=== PATIENT | female | born 1940 | race Caucasian/White ===

== ENCOUNTER 2023-07-25 00:12 | Emergency (ER) | payer MEDICARE, OTHER, SELFPAY ==
[2023-07-25 00:14] VITALS: BP 140/65; BMI 23.1
[2023-07-25 00:23] VITALS: BP 140/65
[2023-07-25 00:54] LABS: ALT (SGPT) 18 U/L (0-35); AST (SGOT) 35 U/L (14-36); Albumin 4.4 g/dl (3.5-5.0); Alkaline Phosphatase 87 U/L (38-126); Blood Urea Nitrogen 17 mg/dl (7-17); Calcium 9.4 mg/dl (8.4-10.2); Carbon Dioxide 24 mmol/L (22-30); Chloride 108 mmol/L (98-107); Estimated Creatinine Clearance 47 ml/min; Glucose 112 mg/dl (70-99); Potassium 4.3 mmol/L (3.5-5.1); Sodium 141 mmol/L (135-145); Total Bilirubin 0.5 mg/dl (0.2-1.3); Total Protein 7.1 g/dl (6.3-8.2); eGFR > 60.00
[2023-07-25 01:00] VITALS: BP 134/65
[2023-07-25 01:28] LABS: % Basophils 0.6 % (0-2); % Eosinophils 0.8 % (0-6); % Lymphocytes 21.2 % (20.5-51.1); % Monocytes 7.5 % (1.7-9.3); % Neutrophils 67.9 % (42.2-75.2); Absolute Eosinophils 0.1 10^3/uL (0-0.7); Absolute Immature Granulocytes 0.1 10^3/uL (0-0.05); Absolute Lymphocytes 1.4 10^3/uL (1.2-3.4); Absolute Monocytes 0.5 10^3/uL (0.1-0.6); Absolute Neutrophils 4.4 10^3/uL (1.4-6.5); Hematocrit 41.8 % (37.0-47.0); Hemoglobin 13.8 g/dL (12.0-16.0); Mean Platelet Volume 8.6 fL (7.4-10.4); Nucleated Red Blood Cells % 0 %; Platelet Count 193 10^3/uL (130-400); Red Blood Cell Count 4.18 10^6/uL (4.20-5.40); Red Cell Dist. Width 14.6 % (11.5-14.5); White Blood Cell Count 6.4 10^3/uL (4.8-10.8)
--- NOTE | 2023-07-25 02:49 | ED.GENMED ---
History of Present Illness
General
Chief Complaint: Fall
Source: patient and ambulance crew
Exam Limitations: none
Time Seen by Provider: 07/25/23 02:49
Nursing documentation reviewed up to this point in time: agreed with
Travel History
Have you had any contact with someone who has COVID-19?: No
Do you have any symptoms of coronavirus? Fever > 100 degrees, chills, cough, shortness of breath, sore throat, loss of taste or smell, muscle aches, or headache?: No
History of Present Illness
History of Present Illness:
83 yo female presents emergency department complaining of a fall on her way to the bathroom. She was drinking vodka tonight. She complains of loss of consciousness. She does not take any blood thinners. She did hit her head.
Past History
Past History
ED Past Medical History: Fibromyalgia, Hypercholesterolemia, Psychiatric (depression) and Other (Ulcerative colitis)
Patient has exhibited threatening behavior?: No
Social History
Tobacco: Former smoker (has used e-cigarettes for past 'few' years.)
Alcohol: Occasional
Drug: None
Personal:
Living: with family
Review of Systems
Review of Systems
Allergies reviewed?: Yes
All Other Systems: Not applicable
Constitutional: Reports no symptoms
EENT: Reports no symptoms
Respiratory: Reports no symptoms
Cardiac: Reports no symptoms
ABD/GI: Reports no symptoms
: Reports no symptoms
Musculoskeletal: Reports no symptoms
Skin: Reports other (Forehead laceration, left elbow skin tear)
Neurological: Reports no symptoms
Endocrine: Reports no symptoms
Hematologic/Lymphatic: Reports no symptoms
Psychiatric: Reports no symptoms
Phy Exam
Physical Exam
Physical Exam:
Physical Exam
General: no apparent distress, not acutely ill
Neck: supple. no meningeal signs. normal posterior pharynx
Heart: s1/s2 regular rate and rhythm, no murmur. equal radial
pulses.
HEENT: Pupils equal round reactive to light, EOMI
Lungs: no acute respiratory distress. clear bilaterally
Abdomen: normal bowel sounds. not tender. no CVAT
Neuro: alert and oriented. no focal neurological deficits cranial nerves II through XII intact
Skin: no rash, skin tear left elbow, 2 cm left forehead laceration
Psychiatric: well kept. interactive and cooperative
Extremities: no edema. no calf tenderness. negative homans. good distal pulses
Course
Orders/Labs/Results
Orders:
Orders
07/25/23 00:18
Electrocardiogram (*1) Urgent
Reason for Study: Syncope
EKG- Treatment ONCE
07/25/23 00:30
Complete Blood Count/With Diff Urgent
Comprehensive Metabolic Panel Urgent
07/25/23 01:28
CT Head W/o Iv Contrast Urgent
Comment:
Reason For Exam: fall
Elbow, 3 view, Left [CR Elbow - Left Min 3 Views ] Urgent
Comment:
Reason For Exam: fall
07/25/23 03:30
Acetaminophen [Tylenol] 650 mg .ROUTE .STK-MED ONE
Abnormal Lab Results
07/25/23
00:30
RBC 4.18 L 10^6/uL
(4.20-5.40)
MCV 100.0 H fL
(81.0-99.0)
MCH 33.0 H pg
(27.0-31.0)
RDW 14.6 H %
(11.5-14.5)
Abs Immat Gran (auto) 0.1 H 10^3/uL
(0-0.05)
Immature Gran % 2.0 H %
(0-0.5)
Chloride 108 H mmol/L
(98-107)
Glucose 112 H mg/dl
(70-99)
07/25/23 00:30
07/25/23 00:30
Vital Signs
Initial and Last Documented VS:
Initial Vital Signs
Temp Pulse Resp BP Pulse Ox
97.8 F 71 18 140/65 99
07/25/23 00:14 07/25/23 00:14 07/25/23 00:14 07/25/23 00:14 07/25/23 00:14
Last Documented Vital Signs
Temp Pulse Resp BP Pulse Ox
97.8 F 71 18 140/65 99
07/25/23 00:14 07/25/23 00:14 07/25/23 00:14 07/25/23 00:14 07/25/23 00:14
MDM/Problems Addressed
Differential Diagnosis Includes:
Intracranial hemorrhage, alcohol intoxication
MDM/Problems Addressed:
83-year-old female with left forehead laceration, fall, skin tear left elbow.
Chronic conditions affecting care: COPD
Acute Exacerbation and/or Progression of Chronic Illness: COPD
*Radiology
Radiology exam reviewed: preliminary read by ED provider (Left elbow x-ray no fracture no fracture) and radiology read reviewed (CT head no acute findings)
*Pulse Oximetry
Patient hypoxic: no
*EKG
Interpreted by ED Provider?: Yes
EKG Intrepretation Date: 07/25/23
EKG Intrepretation Time: 00:22
Interpretation: normal
Comparison EKG: no changes
Heart Rate: 71
Rate: normal
Rhythm: sinus
[place]: normal axis
Interval: normal interval
QRS Pattern: normal QRS
Ischemia: no ischemia
*Industrial Design Engineer Interpretation
Rate: normal
Interpretation: normal
Heart Rate: 70
Rhythm: sinus
*Critical Care Note
Total Time (30-74mins, 75-104mins- exclusive of procedures): Not Applicable
Patient Management
Social determinants of health affecting care: Substance abuse (Alcohol, electronic cigarette)
ED Attending Note
-
Portions of this chart may have been created with voice recognition software.� Occasional wrong word or��sound alike� substitutions may have occurred due to the inherent limitations of voice recognition software.
Discharge Plan
Departure
Patient Disposition: Home (Routine Discharge)
Date of Disposition: 07/25/23
Time of Disposition: 03:51
Patient with high blood pressure during this ER visit?: Yes
Condition: Good
Discharge Problem:
Fall, Skin tear, Forehead laceration
Instructions: Laceration Repair With Stitches (DC), Preventing falls in adults, Skin Abrasions (DC), BLOOD PRESSURE
Prescriptions:
No Action
ascorbic acid (vitamin C) [Vitamin C] 500 MG tablet
500 mg PO DAILY
simvastatin 20 MG tablet
20 mg PO QPM
lorazepam 0.5 MG tablet
0.5 - 1 mg PO HS
Patient Comments:
09/02/2021: last filled 05/05/21, 180 tabs for 90 days from [facility]
hydrocodone-acetaminophen 1 TABLET tablet
1 tab PO [id number] PRN (Reason: moderate to severe pain)
Patient Comments:
09/02/2021: last filled 07/15/21, 60 tabs for 30 days
methylprednisolone 4 MG tablet
4 mg PO DAILY
folic acid 1 MG tablet
1 mg PO DAILY
cholecalciferol (vitamin D3) 1,000 UNITS tablet
1,000 units PO DAILY
Prolia 60 MG/ML syringe
60 mg SC .[id number]
calcium carbonate 500 MG tablet
500 mg PO DAILY Qty: 0
methotrexate sodium (PF) 50 MG/2 ML solution
1 ml SC TU
methenamine hippurate [Hiprex] 1 gram tablet
1 g PO BID 30 Days Qty: 60 0RF
Referrals:
Dawson Jordan CRNP [Family Provider] - Call in 1-3 days for appt
Interventions
Interventions:
*Risk Screen - Suicide Last Done: 07/25/23 00:14
*General Assessment Last Done: 07/25/23 00:14
*Neglect/Abuse Screening Last Done: 07/25/23 00:14
*ED COVID-19 Vaccine History Last Done: 07/25/23 00:14
ED-Musculoskeletal Assessment Last Done: 07/25/23 00:28
ED- Neurological Assessment Last Done: 07/25/23 00:28
ED-Skin Assessment Last Done: 07/25/23 00:28
Discharge Date and Time
Print Language: GUINEAN
[2023-07-25] MEDS: TYLENOL 650 MG PO (03:42)
--- NOTE | 2023-07-25 06:56 | EDRN ---
call to pt's daughter to provide ride home- no answer QUINTON left
[2023-07-25 07:32] VITALS: BP 162/77
== END 2023-07-25 09:48 | disposition home or self-care (01) ==
LOC: EMR 00:12
PROVIDERS: EMERGENCY PHYSICIAN Emergency Medicine; FAMILY PHYSICIAN Nurse Practitioner Family
DX: S51.012A Laceration without foreign body of left elbow, initial encounter (principal); S01.81XA Laceration without foreign body of other part of head, initial encounter; W19.XXXA Unspecified fall, initial encounter; M79.7 Fibromyalgia; E78.00 Pure hypercholesterolemia, unspecified; K51.90 Ulcerative colitis, unspecified, without complications; F32.A Depression, unspecified; J44.9 Chronic obstructive pulmonary disease, unspecified; Z87.891 Personal history of nicotine dependence
CPT/HCPCS: 99284; 70450; 73080; 80053; 85025; 93005

== ENCOUNTER → 2023-09-28 11:26 | Outpatient (REF) | payer MEDICARE, OTHER, SELFPAY ==
[2023-09-28 16:19] LABS: ALT (SGPT) 16 U/L (0-35); AST (SGOT) 29 U/L (14-36); Albumin 4.3 g/dl (3.5-5.0); Alkaline Phosphatase 95 U/L (38-126); Blood Urea Nitrogen 15 mg/dl (7-17); Calcium 9.1 mg/dl (8.4-10.2); Carbon Dioxide 28 mmol/L (22-30); Chloride 103 mmol/L (98-107); Glucose 102 mg/dl (70-99); HDL Cholesterol 70 mg/dl; LDL Cholesterol, Calculated 107 mg/dl; Potassium 3.8 mmol/L (3.5-5.1); Sodium 137 mmol/L (135-145); Total Bilirubin 0.7 mg/dl (0.2-1.3); Total Cholesterol 231 mg/dl (50-199); Total Protein 6.8 g/dl (6.3-8.2); Triglyceride 270 mg/dl (10-149); Very Low Density Lipoprotein 54 mg/dl (0-30); eGFR > 60.00
[2023-09-28 16:24] LABS: % Basophils 0.3 % (0-2); % Eosinophils 1.2 % (0-6); % Immature Granulocytes 0.5 % (0-0.5); % Lymphocytes 14.6 % (20.5-51.1); % Monocytes 7.2 % (1.7-9.3); % Neutrophils 76.2 % (42.2-75.2); Absolute Eosinophils 0.1 10^3/uL (0-0.7); Absolute Lymphocytes 1.1 10^3/uL (1.2-3.4); Absolute Monocytes 0.5 10^3/uL (0.1-0.6); Absolute Neutrophils 5.6 10^3/uL (1.4-6.5); Hematocrit 41.9 % (37.0-47.0); Hemoglobin 13.9 g/dL (12.0-16.0); Mean Corp Hgb Conc. 33.2 g/dL (33.0-37.0); Mean Corpuscular Volume 99.5 fL (81.0-99.0); Mean Platelet Volume 8.7 fL (7.4-10.4); Nucleated Red Blood Cells % 0 %; Platelet Count 218 10^3/uL (130-400); Red Blood Cell Count 4.21 10^6/uL (4.20-5.40); Red Cell Dist. Width 13.4 % (11.5-14.5); White Blood Cell Count 7.3 10^3/uL (4.8-10.8)
[2023-09-28 16:48] LABS: TSH Reflex To Free T4 0.44 uIU/ml (0.47-4.68)
[2023-09-28 17:16] LABS: Free T4 1.17 ng/dl (0.78-2.19)
== END ==
LOC: HWLAB 11:26
PROVIDERS: ATTENDING PHYSICIAN Nurse Practitioner Family
DX: Z79.899 Other long term (current) drug therapy (principal); E78.5 Hyperlipidemia, unspecified; K51.90 Ulcerative colitis, unspecified, without complications; L40.50 Arthropathic psoriasis, unspecified; M81.0 Age-related osteoporosis without current pathological fracture; F32.5 Major depressive disorder, single episode, in full remission
CPT/HCPCS: 36415; 80053; 80061; 84439; 84443; 85025

== ENCOUNTER → 2023-11-23 12:55 | Outpatient (REF) | payer MEDICARE, OTHER, SELFPAY ==
[2023-11-23 16:03] LABS: Free T3 3.27 pg/ml (2.77-5.27)
[2023-11-23 16:17] LABS: TSH 0.38 uIU/ml (0.47-4.68)
[2023-11-25 16:03] LABS: Thyroid Peroxidase Ab (TPO) <0.3 IU/mL (0.0-9.0)
[2023-11-26 04:21] LABS: TSH Receptor Antibody <1.10 IU/L (<=1.75)
== END ==
LOC: HWLAB 12:55
PROVIDERS: ATTENDING PHYSICIAN Nurse Practitioner Family
DX: E05.90 Thyrotoxicosis, unspecified without thyrotoxic crisis or storm (principal)
CPT/HCPCS: 36415; 83520; 84439; 84443; 84481; 86376

== ENCOUNTER → 2024-03-17 12:46 | Outpatient (REF) | payer MEDICARE, OTHER, SELFPAY ==
[2024-03-17 15:43] LABS: % Basophils 0.3 % (0-2); % Eosinophils 0.3 % (0-6); % Lymphocytes 17.2 % (20.5-51.1); % Neutrophils 75.2 % (42.2-75.2); Absolute Immature Granulocytes 0.2 10^3/uL (0-0.05); Absolute Lymphocytes 1.3 10^3/uL (1.2-3.4); Absolute Monocytes 0.4 10^3/uL (0.1-0.6); Absolute Neutrophils 5.7 10^3/uL (1.4-6.5); Hematocrit 41.1 % (37.0-47.0); Hemoglobin 13.2 g/dL (12.0-16.0); Mean Corp Hgb Conc. 32.1 g/dL (33.0-37.0); Mean Corpuscular Hgb 32.8 pg (27.0-31.0); Mean Platelet Volume 8.4 fL (7.4-10.4); Nucleated Red Blood Cells % 0 %; Platelet Count 255 10^3/uL (130-400); Red Blood Cell Count 4.03 10^6/uL (4.20-5.40); Red Cell Dist. Width 14.3 % (11.5-14.5); White Blood Cell Count 7.6 10^3/uL (4.8-10.8)
[2024-03-17 15:51] LABS: ALT (SGPT) 19 U/L (0-35); AST (SGOT) 28 U/L (14-36); Albumin 4.1 g/dl (3.5-5.0); Alkaline Phosphatase 96 U/L (38-126); Blood Urea Nitrogen 18 mg/dl (7-17); Calcium 9.1 mg/dl (8.4-10.2); Carbon Dioxide 29 mmol/L (22-30); Chloride 103 mmol/L (98-107); Glucose 102 mg/dl (70-99); Potassium 3.8 mmol/L (3.5-5.1); Sodium 135 mmol/L (135-145); Total Bilirubin 0.6 mg/dl (0.2-1.3); Total Cholesterol 222 mg/dl (50-199); Total Protein 6.8 g/dl (6.3-8.2); Triglyceride 197 mg/dl (10-149); Very Low Density Lipoprotein 39 mg/dl (0-30); eGFR > 60.00
[2024-03-17 15:53] LABS: C-Reactive Protein < 5.00 mg/L (0.0-10.00)
[2024-03-17 16:02] LABS: HDL Cholesterol 111 mg/dl; LDL Cholesterol, Calculated 72 mg/dl
[2024-03-17 16:09] LABS: Vitamin D, 25-OH*** 46.1 ng/mL (30-80)
[2024-03-17 16:20] LABS: Erythrocyte Sed Rate 17 mm/hour (0-20)
[2024-03-17 16:23] LABS: TSH Reflex To Free T4 0.59 uIU/ml (0.47-4.68)
== END ==
LOC: HWLAB 12:46
PROVIDERS: ATTENDING PHYSICIAN Internal Medicine Rheumatology; FAMILY PHYSICIAN Nurse Practitioner Family
DX: F32.5 Major depressive disorder, single episode, in full remission (principal); E78.5 Hyperlipidemia, unspecified; K51.90 Ulcerative colitis, unspecified, without complications; L40.50 Arthropathic psoriasis, unspecified; M81.0 Age-related osteoporosis without current pathological fracture; R21 Rash and other nonspecific skin eruption; Z79.899 Other long term (current) drug therapy
CPT/HCPCS: 36415; 80053; 80061; 82306; 84443; 85025; 85652; 86140

== ENCOUNTER → 2024-08-02 13:07 | Outpatient (REF) | payer MEDICARE, OTHER, SELFPAY ==
[2024-08-02 16:01] LABS: % Basophils 0.4 % (0-2); % Eosinophils 0.8 % (0-6); % Immature Granulocytes 0.6 % (0-0.5); % Lymphocytes 15.8 % (20.5-51.1); % Monocytes 9.2 % (1.7-9.3); % Neutrophils 73.2 % (42.2-75.2); Absolute Eosinophils 0.1 10^3/uL (0-0.7); Absolute Lymphocytes 1.1 10^3/uL (1.2-3.4); Absolute Monocytes 0.7 10^3/uL (0.1-0.6); Absolute Neutrophils 5.3 10^3/uL (1.4-6.5); Hematocrit 38.1 % (37.0-47.0); Hemoglobin 13.1 g/dL (12.0-16.0); Mean Corp Hgb Conc. 34.4 g/dL (33.0-37.0); Mean Corpuscular Hgb 32.9 pg (27.0-31.0); Mean Corpuscular Volume 95.7 fL (81.0-99.0); Mean Platelet Volume 8.4 fL (7.4-10.4); Nucleated Red Blood Cells % 0 %; Platelet Count 214 10^3/uL (130-400); Red Blood Cell Count 3.98 10^6/uL (4.20-5.40); Red Cell Dist. Width 13.9 % (11.5-14.5); White Blood Cell Count 7.2 10^3/uL (4.8-10.8)
[2024-08-02 16:10] LABS: ALT (SGPT) 28 U/L (0-35); AST (SGOT) 24 U/L (14-36); Albumin 4.3 g/dl (3.5-5.0); Alkaline Phosphatase 96 U/L (38-126); Blood Urea Nitrogen 15 mg/dl (7-17); Carbon Dioxide 25 mmol/L (22-30); Chloride 107 mmol/L (98-107); Glucose 94 mg/dl (70-99); Sodium 139 mmol/L (135-145); Total Bilirubin 0.5 mg/dl (0.2-1.3); Total Protein 6.7 g/dl (6.3-8.2); eGFR > 60.00
[2024-08-02 16:14] LABS: C-Reactive Protein < 5.00 mg/L (0.0-10.00)
[2024-08-02 16:15] LABS: Erythrocyte Sed Rate 9 mm/hour (0-20)
== END ==
LOC: HWLAB 13:07
PROVIDERS: ATTENDING PHYSICIAN Internal Medicine Rheumatology; FAMILY PHYSICIAN Nurse Practitioner Family; REFERRING PHYSICIAN Internal Medicine Gastroenterology
DX: L40.50 Arthropathic psoriasis, unspecified (principal); Z79.899 Other long term (current) drug therapy; K51.00 Ulcerative (chronic) pancolitis without complications
CPT/HCPCS: 36415; 80053; 85025; 85652; 86140

== ENCOUNTER → 2024-09-11 12:29 | Outpatient (REF) | payer MEDICARE, OTHER, SELFPAY ==
[2024-09-11 16:13] LABS: ALT (SGPT) 16 U/L (0-35); AST (SGOT) 22 U/L (14-36); Albumin 4.4 g/dl (3.5-5.0); Alkaline Phosphatase 83 U/L (38-126); Blood Urea Nitrogen 18 mg/dl (7-17); Calcium 9.3 mg/dl (8.4-10.2); Carbon Dioxide 29 mmol/L (22-30); Chloride 103 mmol/L (98-107); Glucose 111 mg/dl (70-99); HDL Cholesterol 96 mg/dl; LDL Cholesterol, Calculated 95 mg/dl; Potassium 4.3 mmol/L (3.5-5.1); Sodium 137 mmol/L (135-145); Total Protein 6.7 g/dl (6.3-8.2); Very Low Density Lipoprotein 27 mg/dl (0-30); eGFR > 60.00
[2024-09-11 16:23] LABS: Hematocrit 40.0 % (37.0-47.0); Hemoglobin 13.0 g/dL (12.0-16.0); Mean Corp Hgb Conc. 32.5 g/dL (33.0-37.0); Mean Corpuscular Volume 99.5 fL (81.0-99.0); Nucleated Red Blood Cells % 0 %; Platelet Count 212 10^3/uL (130-400); Red Cell Dist. Width 14.6 % (11.5-14.5)
== END ==
LOC: HWLAB 12:29
PROVIDERS: ATTENDING PHYSICIAN Nurse Practitioner Family
DX: Z00.00 Encounter for general adult medical examination without abnormal findings (principal); F32.5 Major depressive disorder, single episode, in full remission; E78.5 Hyperlipidemia, unspecified; K51.90 Ulcerative colitis, unspecified, without complications; L40.50 Arthropathic psoriasis, unspecified; M81.0 Age-related osteoporosis without current pathological fracture; R21 Rash and other nonspecific skin eruption
CPT/HCPCS: 36415; 80053; 80061; 84443; 85025

== ENCOUNTER → 2024-09-21 10:33 | Outpatient (REF) | payer MEDICARE, OTHER, SELFPAY | LOC: HWRAD 10:33 | PROVIDERS: ATTENDING PHYSICIAN Physician Assistant; FAMILY PHYSICIAN Nurse Practitioner Family | DX: M81.0 Age-related osteoporosis without current pathological fracture (principal) | CPT/HCPCS: 77080 ==

== ENCOUNTER → 2025-02-06 11:26 | Outpatient (REF) | payer MEDICARE, OTHER, SELFPAY ==
[2025-02-06 15:58] LABS: Hematocrit 43.2 % (37.0-47.0); Hemoglobin 14.1 g/dL (12.0-16.0); Mean Corp Hgb Conc. 32.6 g/dL (33.0-37.0); Mean Corpuscular Volume 99.3 fL (81.0-99.0); Nucleated Red Blood Cells % 0 %; Platelet Count 215 10^3/uL (130-400); Red Cell Dist. Width 13.2 % (11.5-14.5)
[2025-02-06 16:06] LABS: ALT (SGPT) 18 U/L (0-35); AST (SGOT) 26 U/L (14-36); Albumin 4.1 g/dl (3.5-5.0); Alkaline Phosphatase 77 U/L (38-126); Blood Urea Nitrogen 18 mg/dl (7-17); Calcium 9.1 mg/dl (8.4-10.2); Carbon Dioxide 27 mmol/L (22-30); Chloride 103 mmol/L (98-107); Glucose 104 mg/dl (70-99); Potassium 3.9 mmol/L (3.5-5.1); Sodium 135 mmol/L (135-145); Total Protein 6.7 g/dl (6.3-8.2); eGFR > 60.00
[2025-02-06 16:10] LABS: C-Reactive Protein 5.30 mg/L (0.0-10.00)
== END ==
LOC: HWLAB 11:26
PROVIDERS: ATTENDING PHYSICIAN Nurse Practitioner Family; FAMILY PHYSICIAN Nurse Practitioner Family
DX: L40.50 Arthropathic psoriasis, unspecified (principal); Z79.899 Other long term (current) drug therapy
CPT/HCPCS: 36415; 80053; 85025; 85652; 86140